=== PATIENT | female | born 1995 | race African-American/Black ===

== ENCOUNTER 2018-02-25 23:44 | Emergency (ER) | payer OTHER, SELFPAY ==
[2018-02-25 23:45] VITALS: BP 126/75; PULSE 78; RESP 12; TEMP 36.1; O2SAT 98; BMI 24.5
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
[2018-02-26] MEDS: Diphth,Pertuss(Acell),Tet Vac 0.5 ML Vial IM (00:09)
--- NOTE | 2018-02-26 00:15 | ED.RN ---
PT UNABLE TO CONTACT SOAP CHIPPER. PT REPORTS THAT INITIALLY THE SOAP CHIPPER STATED SHE WAS NOT TO BE TESTED.
--- NOTE | 2018-02-26 00:23 | ED.RN ---
PT GIVEN WRITTEN AND VERBAL DISCHARGE INSTRUCTIONS AND HOME GOING PRESCRIPTIONS. PT VERBALIZES UNDERSTANDING AND AMBULATES HOME WITHOUT ASSISTANCE. PT GIVEN SUPPLIES FOR A DRESSING AT HOME, BUT REFUSED TO LET THIS RN DRESS WOUND.
== END 2018-02-26 00:24 | disposition home or self-care (01) ==
LOC: ED 02-26 00:16
PROVIDERS: Emergency Provider Emergency Medicine
DX: S41.151A Open bite of right upper arm, initial encounter (principal); W50.3XXA Accidental bite by another person, initial encounter; Y93.9 Activity, unspecified; Y92.9 Unspecified place or not applicable; Z23 Encounter for immunization
CPT/HCPCS: 90715; 99283

== ENCOUNTER 2025-01-26 18:43 | Emergency (ER) | payer OTHER, SELFPAY ==
[2025-01-26 18:44] VITALS: BP 134/72; PULSE 82; RESP 15; TEMP 36.2; O2SAT 100; BMI 30.9
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
[2025-01-26] MEDS: Ibuprofen 600 MG Tablet PO (20:07)
[2025-01-26 20:22] VITALS: BP 129/70; PULSE 77; RESP 15; TEMP 36.2; O2SAT 100
== END 2025-01-26 20:22 | disposition home or self-care (01) ==
PROVIDERS: Emergency Provider Emergency Medicine; Visit Provider Emergency Medicine
DX: S16.1XXA Strain of muscle, fascia and tendon at neck level, initial encounter (principal); S29.019A Strain of muscle and tendon of unspecified wall of thorax, initial encounter; V49.40XA Driver injured in collision with unspecified motor vehicles in traffic accident, initial encounter; Y92.410 Unspecified street and highway as the place of occurrence of the external cause
CPT/HCPCS: 99282